=== PATIENT | female | born 2000 | race Caucasian/White ===

== ENCOUNTER 2019-03-02 16:47 | Emergency (ER) | payer MEDICAID ==
[~2019-03-02] VITALS: Ht 160 cm; Wt 119.8 kg
[2019-03-02] MEDS ORDERED: DEXAMETHASONE 1 MG TABLET PO ONE (17:26)
[2019-03-02] MEDS ORDERED: AMOXICILLIN/CLAV 875-125MG TABLET PO ONE (17:26)
[2019-03-02] MEDS ORDERED: IBUPROFEN 800 MG TABLET PO ONE (17:26)
[2019-03-02] MEDS ORDERED: DEXAMETHASONE 4 MG TABLET ONE (17:32)
[2019-03-02] MEDS ORDERED: IBUPROFEN 800 MG TABLET ONE (17:32)
[2019-03-02] MEDS ORDERED: AMOXICILLIN/CLAV 875-125MG TABLET ONE (17:32)
[2019-03-02] MEDS ORDERED: DEXAMETHASONE 4 MG TABLET PO ONE (18:00)
[2019-03-02 18:10] VITALS: BP 124/62
== END 2019-03-02 18:14 | disposition home or self-care (01) ==
LOC: ED 18:10
DX: J02.0 Streptococcal pharyngitis (principal); R00.0 Tachycardia, unspecified
CPT/HCPCS: 99284